=== PATIENT | female | born 1980 | race Hispanic/Latino ===

== ENCOUNTER 2018-01-05 15:36 | Emergency (ER) | payer OTHER ==
[2018-01-05 17:05] LABS: Urine Blood NEGATIVE (NEG); Urine Glucose NEGATIVE (NEG); Urine Protein TRACE (NEG); Urine Specific Gravity 1.025 (1.005-1.030); Urine pH 5.5 (5.0-7.0)
--- NOTE | 2018-01-05 17:45 | RAD REPORT ---
EXAM DESCRIPTION: RAD - Hand Right 3 View - 01/05/2018 5:04 pm CLINICAL HISTORY: Trauma, pain COMPARISON: None. FINDINGS: A tuft fracture is present involving the third digit. Adjacent soft tissue swelling is eusebio dent. No foreign body is visible. IMPRESSION: Third digit tuft fracture.
[2018-01-05] MEDS ORDERED: CEFAZOLIN SODIUM 1 GM/VIAL ONE (19:14)
--- NOTE | 2018-01-05 19:28 | EDPHYS ---
Physician Documentation [facility] Name: Pia Bruce Age: 37 yrs Sex: Female : 1980 Arrival Date: 01/05/2018 Time: 15:39 Bed 18 Private MD: ED Physician Osvaldo Seo HPI: 01/05 19:00 This 37 yrs old Female presents to ER via Ambulatory with complaints of pm1 Laceration - Finger. 19:00 The patient or guardian reports a laceration, pain. The complaints affect the palmar pm1 aspect of distal phalanx of right middle finger. Context: The problem was sustained at work, resulted from a crush injury, by a heavy object. Onset: The symptoms/episode began/occurred just prior to arrival. Modifying factors: The symptoms are alleviated by nothing, the symptoms are aggravated by nothing. Associated signs and symptoms: Pertinent negatives: decreased sensation distally, numbness distally, tingling distally. Severity of symptoms: in the emergency department the symptoms are unchanged. The patient has not experienced similar symptoms in the past. The patient has not recently seen a physician. Patient with crush injury to third middle finger from headboard falling on her finger at work. Tetanus less than 5 years. VP PATIENT: 16:06 LMP 12/20/2017 hb Historical: - Allergies: 16:06 No Known Allergies; hb - Home Meds: 16:06 None [Active]; hb - PMHx: 16:06 Diabetes - NIDDM; hb - PSHx: 16:06 ; hb - Immunization history:: Adult Immunizations up to date, Last tetanus immunization: < 5 years ago. - Social history:: Smoking status: Patient uses tobacco products, smokes one-half pack cigarettes per day. ROS: 19:00 Constitutional: Negative for fever, chills, and weight loss, Eyes: Negative for injury, pm1 pain, redness, and discharge, ENT: Negative for injury, pain, and discharge, Neck: Negative for injury, pain, and swelling, Cardiovascular: Negative for chest pain, palpitations, and edema, Respiratory: Negative for shortness of breath, cough, wheezing, and pleuritic chest pain, Abdomen/GI: Negative for abdominal pain, nausea, vomiting, diarrhea, and constipation, Back: Negative for injury and pain. 19:00 Neuro: Negative for headache, weakness, numbness, tingling, and seizure. 19:00 MS/extremity: Positive for laceration, pain, swelling, of the palmar aspect of distal phalanx of right middle finger. 19:00 Skin: Positive for laceration(s), of the palmar aspect of distal phalanx of right middle finger, third right finger nail loose. Exam: 19:00 Constitutional: This is a well developed, well nourished patient who is awake, alert, pm1 and in no acute distress. Head/Face: Normocephalic, atraumatic. Eyes: Pupils equal round and reactive to light, extra-ocular motions intact. Lids and lashes normal. Conjunctiva and sclera are non-icteric and not injected. Cornea within normal limits. Periorbital areas with no swelling, redness, or edema. ENT: Nares patent. No nasal discharge, no septal abnormalities noted. Tympanic membranes are normal and external auditory canals are clear. Oropharynx with no redness, swelling, or masses, exudates, or evidence of obstruction, uvula midline. Mucous membranes moist. Neck: Trachea midline, no thyromegaly or masses palpated, and no cervical lymphadenopathy. Supple, full range of motion without nuchal rigidity, or vertebral point tenderness. No Meningismus. Chest/axilla: Normal chest wall appearance and motion. Nontender with no deformity. No lesions are appreciated. Cardiovascular: Regular rate and rhythm with a normal S1 and S2. No gallops, murmurs, or rubs. Normal PMI, no JVD. No pulse deficits. Respiratory: Lungs have equal breath sounds bilaterally, clear to auscultation and percussion. No rales, rhonchi or wheezes noted. No increased work of breathing, no retractions or nasal flaring. Abdomen/GI: Soft, non-tender, with normal bowel sounds. No distension or tympany. No guarding or rebound. No evidence of tenderness throughout. Back: No spinal tenderness. No costovertebral tenderness. Full range of motion. 19:00 Skin: Appearance: normal except for affected area, injury, laceration(s), the wound is approximately 1 cm(s), of the palmar aspect of distal phalanx of right middle finger, subungual hematoma to third right fingernail and nail loose with damage to later aspect of cuticle. Vital Signs: 16:06 BP 112 / 93; Pulse 82; Resp 16; Temp 98.3; Pulse Ox 98% on R/A; Weight 74.84 kg; Height hb 5 ft. 1 in. (154.94 cm); Pain 7/10; 18:00 BP 115 / 95; Pulse 80; Resp 18; Pulse Ox 100% on R/A; hj 16:06 Body Mass Index 31.18 (74.84 kg, 154.94 cm) hb Laceration: 19:20 Wound Repair of 1cm ( 0.4in ) subcutaneous laceration to palmar aspect of distal pm1 phalanx of right middle finger. Linear shaped.. Distal neuro/vascular/tendon intact. Anesthesia: Digital block administered with 2 mls of 1% lidocaine. Wound prep: Extensive cleansing by me, Wound irrigation by me, Wound explored extensively, Copious irrigation. Skin closed with 5 6-0 Prolene using and figure 8 suture with 5-0 prolene to keep nailbed intact. Dressed with tube gauze. Patient tolerated well. MDM: 16:49 Patient medically screened. pm1 19:25 Data reviewed: vital signs. Data interpreted: Pulse oximetry: on room air is 100 %. pm1 Interpretation: normal. Counseling: I had a detailed discussion with the patient and/or guardian regarding: the historical points, exam findings, and any diagnostic results supporting the discharge/admit diagnosis, radiology results, the need for outpatient follow up, to return to the emergency department if symptoms worsen or persist or if there are any questions or concerns that arise at home. 01/05 16:46 Order name: Urine Dipstick--Ancillary (enter results) bd 01/05 16:46 Order name: Urine --Ancillary (enter results); Complete Time: 18:03 bd 01/05 16:11 Order name: Hand Right 3 View XRAY; Complete Time: 18:03 hb 01/05 16:46 Order name: Urine Dipstick-Ancillary; Complete Time: 18:03 EDMS 01/05 16:57 Order name: Prolene, Sutures; Complete Time: 18:51 pm1 01/05 16:57 Order name: Dressing - Wound; Complete Time: 18:51 pm1 01/05 16:57 Order name: Gloves, Sterile; Complete Time: 18:51 pm1 01/05 16:57 Order name: Setup Suture Tray; Complete Time: 18:51 pm1 01/05 19:25 Order name: Splint - Finger; Complete Time: 20:01 pm1 Administered Medications: 18:45 Drug: Lidocaine (1 %) 5 ml Volume: 5 ml; Route: Infiltration; 19:07 Follow up: Response: No adverse reaction 18:45 Drug: Ancef 1 grams Route: IM; Site: left deltoid; 19:07 Follow up: Response: No adverse reaction Disposition: 01/06 07:05 Co-signature as Attending Physician, Osvaldo Seo MD. rn Disposition: 01/05/18 19:27 Discharged to Home. Impression: Laceration without foreign body of right middle finger with damage to nail, Right middle finger distal tuft fracture. - Condition is Stable. - Discharge Instructions: Finger Fracture, Laceration Care, Adult, Nail Bed Injury. - Prescriptions for Keflex 500 mg Oral Capsule - take 1 capsule by ORAL route every 6 hours for 10 days; 40 capsule. Tylenol- Codeine #3 300-30 mg Oral Tablet - take 2 tablets by ORAL route every 6 hours As needed; 20 tablet. - Medication Reconciliation Form, Thank You Letter, Antibiotic Education, Prescription Opioid Use, Work release form form. - Follow up: Emergency Department; When: As needed; Reason: Worsening of condition. Follow up: Private Physician; When: 2 - 3 days; Reason: Recheck today's complaints, Continuance of care, Re-evaluation by your physician. Follow up: Robert Lowe MD; When: 2 - 3 days; Reason: Recheck today's complaints, Continuance of care, Re-evaluation by your physician. - Problem is new. - Symptoms have improved. Signatures: Dispatcher [employer] EDOsvaldo Dejesus MD MD rn Joaquin, Henry, RN RN hj Tadeo Garza, ALUMINUM BOATS ASSEMBLER ALUMINUM BOATS ASSEMBLER pm1 Jackie Landers RN RN hb Peltier, Brian, RN RN bp
--- NOTE | 2018-01-05 19:28 | ER ---
Nurse's Notes [facility] Name: Pia Bruce Age: 37 yrs Sex: Female : 1980 Arrival Date: 01/05/2018 Time: 15:39 Bed 18 Private MD: Diagnosis: Laceration without foreign body of right middle finger with damage to nail;Right middle finger distal tuft fracture Presentation: 01/05 16:04 Presenting complaint: Patient states: Smashed RIGHT middle finger under footboard of hospital bed approx 45 mins [employer]. Small laceration noted to tip of middle finger, bruising to finger pad and dried blood around cuticle. Transition of care: patient was not received from another setting of care. Complicating Factors: There are no complicating factors for this patient. Onset of symptoms was January 05, 2018. Care prior to arrival: Medication(s) given: Motrin, at 1345. 16:04 Method Of Arrival: Ambulatory 16:04 Acuity: ADILENE 4 Triage Assessment: 16:39 General: Appears in no apparent distress. uncomfortable, Behavior is calm, cooperative, hj appropriate for age. Pain: Complains of pain in palmar aspect of distal phalanx of right middle finger and right middle fingernail. Injury Description: Crush injury. 16:40 Injury Description: Laceration. 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 - Social history:: Smoking status: Patient uses tobacco products, smokes one-half pack cigarettes per day. Screenin:39 Abuse screen: Denies threats or abuse. Denies injuries from another. Nutritional hj screening: No deficits noted. Tuberculosis screening: No symptoms or risk factors identified. Fall Risk None identified. Assessment: 16:40 Musculoskeletal: Reports. Injury Description: Laceration. hj 16:40 General: Appears in no apparent distress. uncomfortable, Behavior is calm, cooperative, hj appropriate for age. Pain: Complains of pain in right middle fingernail and palmar aspect of distal phalanx of right middle finger. Neuro: Level of Consciousness is awake, alert, obeys commands, Oriented to person, place, time, situation, Appropriate for age. Cardiovascular: Capillary refill < 3 seconds Patient's skin is warm and dry. Respiratory: Airway is patent Respiratory effort is even, unlabored, Respiratory pattern is regular, symmetrical. GI: No signs and/or symptoms were reported involving the gastrointestinal system. : No signs and/or symptoms were reported regarding the genitourinary system. EENT: No signs and/or symptoms were reported regarding the EENT system. Derm: Wound noted. Injury Description: Crush injury. 17:00 Reassessment: advised pt to remove nail burmese; able to removed it;. hj 17:15 Reassessment: Patient and/or family updated on plan of care and expected duration. Pain hj level reassessed. Patient is alert, oriented x 3, equal unlabored respirations, skin warm/dry/pink. awaiting provider to repair lac; equipments/ meds in the room;. 18:48 Reassessment: Patient and/or family updated on plan of care and expected duration. Pain hj level reassessed. Patient is alert, oriented x 3, equal unlabored respirations, skin warm/dry/pink. awaiting provider;. 19:00 Reassessment: RECD REPORT FROM TORIBIO NOONAN. 37YO HF P/W R 3RD FINGER CRUSH INJURY. LAC bp REPAIR COMPLETED, DISPO PENDING. 19:00 Injury Description: Laceration is jagged, 0.5 to 2.5 cm long, not bleeding. bp 20:01 Reassessment: PT D/C HOME AMBULATORY WITH FAMILY, DX WITH FINGER INJURY. PT TO F/U WITH bp OCCUPATIONAL HEALTH AND PCP. Vital Signs: 16:06 BP 112 / 93; Pulse 82; Resp 16; Temp 98.3; Pulse Ox 98% on R/A; Weight 74.84 kg; Height hb 5 ft. 1 in. (154.94 cm); Pain 7/10; 18:00 BP 115 / 95; Pulse 80; Resp 18; Pulse Ox 100% on R/A; hj 16:06 Body Mass Index 31.18 (74.84 kg, 154.94 cm) hb ED Course: 15:39 Patient arrived in ED. as 16:05 Triage completed. hb 16:06 Arm band placed on left wrist. hb 16:35 Urine collected: clean catch specimen, daria colored. 3 16:38 Toribio Gresham, RN is Primary Nurse. hj 16:40 Patient has correct armband on for positive identification. Placed in gown. Bed in low hj position. Call light in reach. Side rails up X 1. 16:44 Tadeo Garza NP is PHCP. pm1 16:44 Osvalod Seo MD is Attending Physician. pm1 16:59 Hand Right 3 View XRAY In Process Unspecified. EDMS 19:00 Assist provider with laceration repair on palmar aspect of distal phalanx of right bp middle finger that was 2.5 cm. or less using sutures. Set up tray. Performed by Tadeo Garza SENIOR PHARMACY TECHNICIAN Dressed with Cassie, Patient tolerated well. 19:00 Patient did not have IV access during this emergency room visit. bp 19:03 Urine Dipstick--Ancillary (enter results) Sent. bp 19:28 Robert Lowe MD is Referral Physician. pm1 Administered Medications: 18:45 Drug: Lidocaine (1 %) 5 ml Volume: 5 ml; Route: Infiltration; hj 19:07 Follow up: Response: No adverse reaction hj 18:45 Drug: Ancef 1 grams Route: IM; Site: left deltoid; hj 19:07 Follow up: Response: No adverse reaction hj Outcome: 19:27 Discharge ordered by . pm1 20:02 Discharged to home ambulatory, with family. bp 20:02 Condition: stable 20:02 Discharge instructions given to patient, Instructed on discharge instructions, follow up and referral plans. medication usage, Demonstrated understanding of instructions, follow-up care, medications, Prescriptions given X 2. 20:09 Patient left the ED. bp Signatures: Dispatcher [employer] EDSC Annette Estrada as Toribio Gresham, SHAISTA NOONAN Tadeo Garza NP SENIOR PHARMACY TECHNICIAN pm1 Jackie Landers RN RN Mary Winston 3 Ariel Bonds RN RN bp Corrections: (The following items were deleted from the chart) 16:09 16:04 Presenting complaint: Patient states: Smashed RIGHT middle finger under footboard hb of hospital bed approx 45 mins [employer] hb 16:09 16:04 Acuity: ADILENE 3 hb hb
[2018-01-05 20:15] VITALS: TEMP 98.3
[2018-01-05 20:16] VITALS: BP 115/95; O2SAT 100
== END 2018-01-05 20:09 | disposition home or self-care (01) ==
LOC: ER 15:36
PROC: 0JQJ0ZZ Repair Right Hand Subcutaneous Tissue and Fascia, Open Approach (ICD-10-PCS; principal; 2018-01-05)
DX: S62.632A Displaced fracture of distal phalanx of right middle finger, initial encounter for closed fracture (principal); X58.XXXA Exposure to other specified factors, initial encounter; Y93.89 Activity, other specified; Y92.128 Other place in nursing home as the place of occurrence of the external cause; Y99.8 Other external cause status; E11.9 Type 2 diabetes mellitus without complications; F17.210 Nicotine dependence, cigarettes, uncomplicated
CPT/HCPCS: 81003; 81025; 96372; 99284; J0690